=== PATIENT | female | born 1960 | race Caucasian/White ===

== ENCOUNTER → 2017-11-14 | Outpatient (CLI) | payer BC | END | disposition home or self-care (01) | LOC: MAMMO 14:49 | DX: Z12.31 Encounter for screening mammogram for malignant neoplasm of breast (principal) | CPT/HCPCS: 77067 ==

== ENCOUNTER 2017-12-08 12:53 | Inpatient (IN) | payer BC ==
[2017-12-08] MEDS ORDERED: traMADol 50 MG TABLET PO ×2 (13:45)
[2017-12-08 13:59] LABS: POC GLUCOSE 113 mg/dL (70-99)
[2017-12-08] MEDS: IOHEXOL 300 MG/ML 100ML VIAL. IV ×2 (14:45)
[2017-12-08] MEDS: IOHEXOL 240 MG/ML 50ML VIAL. PO ×2 (14:45)
[2017-12-08] MEDS ORDERED: CONTRAST GIVEN MC ×2 (14:45)
[2017-12-08 15:33] LABS: ADD MAN DIFF? NO
[2017-12-08 15:38] LABS: BASO # 0.1 x10^3/uL (0.0-0.2); BASO % 1 % (0-3); EOS # 0.1 x10^3/uL (0.0-0.7); EOS % 1 % (0-3); HEMATOCRIT 40.5 % (36.0-47.0); LYMPH # 3.1 x10^3/uL (1.0-4.8); LYMPH % 42 % (24-48); MEAN CORPUSCULAR HEMOGLOBIN 26 pg (25-35); MEAN CORPUSCULAR HGB CONC 32 g/dL (31-37); MEAN CORPUSCULAR VOLUME 79 fL (79-100); MONO # 0.7 x10^3/uL (0.0-1.1); MONO % 9 % (0-9); NEUT # 3.5 x10^3uL (1.8-7.7); NEUT % 47 % (31-73); PLATELET COUNT 298 x10^3/uL (140-400); RED BLOOD COUNT 5.11 x10^6/uL (3.50-5.40); RED CELL DISTRIBUTION WIDTH 14.9 % (11.5-14.5); WHITE BLOOD COUNT 7.4 x10^3/uL (4.0-11.0)
[2017-12-08 15:49] LABS: ALBUMIN 3.5 g/dL (3.4-5.0); ALBUMIN/GLOBULIN RATIO 0.8 (1.0-1.7); ALK PHOS 91 U/L (46-116); ALT (SGPT) 25 U/L (14-59); ANION GAP 9 (6-14); AST (SGOT) 23 U/L (15-37); BLOOD UREA NITROGEN 19 mg/dL (7-20); BUN/CREATININE RATIO 21 (6-20); CALCIUM 8.3 mg/dL (8.5-10.1); CARBON DIOXIDE 28 mmol/L (21-32); CHLORIDE 100 mmol/L (98-107); CREATININE 0.9 mg/dL (0.6-1.0); GFR 64.1; GLUCOSE 102 mg/dL (70-99); POTASSIUM 4.3 mmol/L (3.5-5.1); SODIUM 137 mmol/L (136-145); TOTAL PROTEIN 7.7 g/dL (6.4-8.2)
[2017-12-08] MEDS: IV DEXTROSE 5% - 0.9 % NACL 1,000 ML IV ×4 (15:57→23:45)
[2017-12-08 16:00] LABS: TOTAL BILIRUBIN 0.1 mg/dL (0.2-1.0)
[2017-12-08] MEDS ORDERED: DEXTROSE 50% 25 GM / 50ML DISP.SYRIN. IV ×2 (17:15)
[2017-12-08] MEDS: ALPRAZolam 0.5 MG TABLET PO ×2 (17:38)
[2017-12-08] MEDS: ENOXAPARIN 40 MG/0.4 ML SYRINGE. SQ ×2 (17:39)
[2017-12-08] MEDS: ATORVASTATIN CALCIUM 10 MG TABLET. PO ×2 (20:06)
[2017-12-08] MEDS: FAMOTIDINE 20 MG TABLET. PO ×2 (20:06)
[2017-12-08] MEDS: oxyCODONE/APAP 10/325 1 TAB TABLET PO ×2 (20:06)
[2017-12-08] MEDS: tiZANidine 4 MG TABLET. PO ×2 (20:07)
[2017-12-08] MEDS: LACTOBACILLUS RHAMNOSUS GG 1 CAPSULE. PO ×2 (20:07)
[2017-12-08] MEDS: TRIAMCINOLONE ACETONIDE 0.1% TOPICAL CREAM 15GM TUBE. TP ×2 (20:07)
[2017-12-08 20:41] LABS: POC GLUCOSE 175 mg/dL (70-99)
[2017-12-08] MEDS: SODIUM CHLORIDE 0.65% NASAL SPRAY 45ML BOTTLE. NS ×2 (22:12)
[2017-12-08] MEDS: guaiFENesin DM 600/30MG 1 TAB TAB.ER.12H PO ×2 (22:12)
[2017-12-08] MEDS: ZOLPIDEM 5 MG TABLET. PO ×2 (23:24)
[2017-12-08 23:26] LABS: INFLUENZA A PATIENT NEGATIVE (NEGATIVE)
[2017-12-08 23:28] LABS: INFLUENZA B PATIENT POSITIVE (NEGATIVE)
[2017-12-08 23:35] LABS: OBC FLU VALID
[2017-12-09] MEDS: oxyCODONE/APAP 10/325 1 TAB TABLET PO ×6 (05:52→18:22)
[2017-12-09] MEDS: IV DEXTROSE 5% - 0.9 % NACL 1,000 ML IV ×4 (05:58→21:15)
[2017-12-09 06:04] LABS: ANION GAP 10 (6-14); BLOOD UREA NITROGEN 16 mg/dL (7-20); CALCIUM 8.3 mg/dL (8.5-10.1); CARBON DIOXIDE 22 mmol/L (21-32); CHLORIDE 105 mmol/L (98-107); CREATININE 0.7 mg/dL (0.6-1.0); GFR 85.6; GLUCOSE 108 mg/dL (70-99); POTASSIUM 4.9 mmol/L (3.5-5.1); SODIUM 137 mmol/L (136-145)
[2017-12-09] MEDS: INSULIN ASPART 300 UNITS/3 ML INSULN.PEN SQ ×6 (08:00→17:00)
[2017-12-09] MEDS: ASPIRIN 325 MG TABLET PO ×2 (08:00)
[2017-12-09] MEDS: tiZANidine 4 MG TABLET. PO ×4 (09:00→21:14)
[2017-12-09] MEDS: TORSEMIDE 20 MG TABLET. PO ×2 (09:00)
[2017-12-09] MEDS: TRIAMCINOLONE ACETONIDE 0.1% TOPICAL CREAM 15GM TUBE. TP ×4 (09:00→21:14)
[2017-12-09] MEDS ORDERED: NON FORMULARY ITEM PO ×2 (09:00)
[2017-12-09 09:03] LABS: POC GLUCOSE 112 mg/dL (70-99)
[2017-12-09 09:33] LABS: ADD MAN DIFF? NO
[2017-12-09 09:37] LABS: BASO # 0.1 x10^3/uL (0.0-0.2); BASO % 1 % (0-3); EOS # 0.1 x10^3/uL (0.0-0.7); EOS % 1 % (0-3); HEMATOCRIT 38.3 % (36.0-47.0); HEMOGLOBIN 12.1 g/dL (12.0-15.5); LYMPH % 58 % (24-48); MEAN CORPUSCULAR HEMOGLOBIN 26 pg (25-35); MEAN CORPUSCULAR HGB CONC 32 g/dL (31-37); MEAN CORPUSCULAR VOLUME 81 fL (79-100); MONO # 0.5 x10^3/uL (0.0-1.1); MONO % 7 % (0-9); NEUT # 2.3 x10^3uL (1.8-7.7); NEUT % 33 % (31-73); PLATELET COUNT 268 x10^3/uL (140-400); RED BLOOD COUNT 4.73 x10^6/uL (3.50-5.40); RED CELL DISTRIBUTION WIDTH 14.9 % (11.5-14.5)
[2017-12-09] MEDS: CELECOXIB 200 MG CAPSULE. PO ×2 (10:08)
[2017-12-09] MEDS: POTASSIUM CHLORIDE 10 MEQ TABLET.ER. PO ×2 (10:09)
[2017-12-09] MEDS: LINAGLIPTIN 5 MG TABLET PO ×2 (10:09)
[2017-12-09] MEDS: OMEGA-3 FATTY ACIDS/FISH OIL 1,000 MG CAPSULE. PO ×2 (10:09)
[2017-12-09] MEDS: LACTOBACILLUS RHAMNOSUS GG 1 CAPSULE. PO ×4 (10:09→21:14)
[2017-12-09] MEDS: guaiFENesin DM 600/30MG 1 TAB TAB.ER.12H PO ×4 (10:10→22:48)
[2017-12-09] MEDS: PANTOPRAZOLE 40 MG TABLET.DR. PO ×2 (10:11)
[2017-12-09] MEDS: OSELTAMIVIR 75 MG CAPSULE PO ×4 (10:11→21:14)
[2017-12-09] MEDS: amLODIPine BESYLATE 5 MG TABLET PO ×2 (11:00)
[2017-12-09 12:44] LABS: POC GLUCOSE 80 mg/dL (70-99)
[2017-12-09] MEDS: ONDANSETRON PF 4 MG/2 ML VIAL. IV ×2 (16:18)
[2017-12-09] MEDS ORDERED: ASPIRIN CHEWABLE 81 MG TABLET. PO ×2 (17:30)
[2017-12-09] MEDS: ENOXAPARIN 40 MG/0.4 ML SYRINGE. SQ ×2 (17:56)
[2017-12-09] MEDS: CYCLOBENZAPRINE 10 MG TABLET. PO ×4 (18:15→21:00)
[2017-12-09 18:20] LABS: POC GLUCOSE 112 mg/dL (70-99)
[2017-12-09 18:31] LABS: BILIRUBIN,URINE NEGATIVE (NEG); CLARITY,URINE CLOUDY; COLOR,URINE YELLOW; GLUCOSE,URINE NEGATIVE (NEG); NITRITE,URINE NEGATIVE (NEG); PH,URINE 7.5; PROTEIN,URINE NEGATIVE (NEG-TRACE); UROBILINOGEN,URINE 0.2 mg/dL (0.2 mg/dL)
[2017-12-09 18:42] LABS: BACTERIA,URINE 0 /HPF (0-FEW); RBC,URINE 0 /HPF (0-2); SQUAMOUS EPITHELIAL CELL,UR FEW /LPF; WBC,URINE 0 /HPF (0-4)
[2017-12-09] MEDS: ATORVASTATIN CALCIUM 10 MG TABLET. PO ×2 (21:00)
[2017-12-09] MEDS: FAMOTIDINE 20 MG TABLET. PO ×2 (21:14)
[2017-12-09 21:24] LABS: POC GLUCOSE 100 mg/dL (70-99)
[2017-12-09] MEDS: ZOLPIDEM 5 MG TABLET. PO ×2 (22:48)
[2017-12-10] MEDS: oxyCODONE/APAP 10/325 1 TAB TABLET PO ×6 (01:55→13:39)
[2017-12-10] MEDS: LINAGLIPTIN 5 MG TABLET PO ×2 (08:00)
[2017-12-10] MEDS: INSULIN ASPART 300 UNITS/3 ML INSULN.PEN SQ ×2 (08:00)
[2017-12-10] MEDS: POTASSIUM CHLORIDE 10 MEQ TABLET.ER. PO ×2 (08:00)
[2017-12-10] MEDS ORDERED: POTASSIUM CHLORIDE 10 MEQ TABLET.ER. PO ×2 (09:00)
[2017-12-10] MEDS: TRIAMTERENE/HCTZ 37.5/25MG TABLET. PO ×2 (09:00)
[2017-12-10] MEDS: OMEGA-3 FATTY ACIDS/FISH OIL 1,000 MG CAPSULE. PO ×2 (09:00)
[2017-12-10] MEDS: TORSEMIDE 20 MG TABLET. PO ×2 (09:00)
[2017-12-10] MEDS ORDERED: NON FORMULARY ITEM (Sitagliptin Phos/Metformin Hcl (Janumet 50-1,000 Mg Tablet) 1 EACH) PO ×2 (09:00)
[2017-12-10] MEDS: TRIAMCINOLONE ACETONIDE 0.1% TOPICAL CREAM 15GM TUBE. TP ×2 (09:00)
[2017-12-10] MEDS: CYCLOBENZAPRINE 10 MG TABLET. PO ×2 (09:00)
[2017-12-10] MEDS ORDERED: amLODIPine BESYLATE 5 MG TABLET PO ×2 (09:00)
[2017-12-10] MEDS ORDERED: PANTOPRAZOLE 40 MG TABLET.DR. PO ×2 (09:00)
[2017-12-10] MEDS: tiZANidine 4 MG TABLET. PO ×2 (09:00)
[2017-12-10 09:17] LABS: POC GLUCOSE 97 mg/dL (70-99)
[2017-12-10] MEDS: CELECOXIB 200 MG CAPSULE. PO ×2 (09:32)
[2017-12-10] MEDS: guaiFENesin DM 600/30MG 1 TAB TAB.ER.12H PO ×2 (09:33)
[2017-12-10] MEDS: PANTOPRAZOLE 40 MG TABLET.DR. PO ×2 (09:33)
[2017-12-10] MEDS: ASPIRIN 325 MG TABLET PO ×2 (09:34)
[2017-12-10] MEDS: OSELTAMIVIR 75 MG CAPSULE PO ×2 (09:35)
[2017-12-10] MEDS: MAGNESIUM OXIDE 400 MG TABLET PO ×2 (09:35)
[2017-12-10] MEDS: LACTOBACILLUS RHAMNOSUS GG 1 CAPSULE. PO ×2 (09:35)
[2017-12-10] MEDS: amLODIPine BESYLATE 10 MG TABLET PO ×2 (09:46)
[2017-12-10] MEDS: IV DEXTROSE 5% - 0.9 % NACL 1,000 ML IV ×2 (09:57)
[2017-12-10 12:01] LABS: POC GLUCOSE 155 mg/dL (70-99)
== END 2017-12-10 13:45 | disposition home or self-care (01) | DRG 392 ==
LOC: 4 NORTH 12:53
PROVIDERS: Internal Medicine
DX: K57.92 Diverticulitis of intestine, part unspecified, without perforation or abscess without bleeding (principal); E11.9 Type 2 diabetes mellitus without complications; J11.1 Influenza due to unidentified influenza virus with other respiratory manifestations; E78.5 Hyperlipidemia, unspecified; I10 Essential (primary) hypertension; K21.9 Gastro-esophageal reflux disease without esophagitis; K57.30 Diverticulosis of large intestine without perforation or abscess without bleeding; K58.9 Irritable bowel syndrome, unspecified; Z79.891 Long term (current) use of opiate analgesic; Z82.49 Family history of ischemic heart disease and other diseases of the circulatory system; Z83.3 Family history of diabetes mellitus; Z87.891 Personal history of nicotine dependence; G89.29 Other chronic pain; M54.9 Dorsalgia, unspecified
CPT/HCPCS: 36415; 71046; 74177; 80048; 80053; 81001; 82962; 85025; 87040; 87804; 87804-59; 93005; J1650; J1956; J2405; J7042; Q9966

== ENCOUNTER → 2018-12-09 | Outpatient (CLI) | payer OTHER ==
[2017-12-10 11:00] VITALS: BP 138/81
[~2018-12-09] MED LIST: AMLO10TA8 PO; AMLO5TAB10 PO; ASPI-630 PO; CYCL5TAB PO; FENT1PAT15 TP; MAGN400C PO; METF10007 PO; OSEL75CA PO; OXYC10TA46 PO; OXYC1TAB22 PO; PANT40TA5 PO; POTA10TA12 PO; SITA1TAB11 PO; TRIA1TAB PO; ZOLP10TA PO
--- NOTE | 2018-12-09 15:09 | RAD ---
DATE: 12/09/2018 EXAM: MAMMO AQUILES SCREENING BILATERAL HISTORY: Routine screening COMPARISON: 11/14/2017 This study was interpreted with the benefit of Computerized Aided Detection (CAD). Breast Density: FATTY The breast parenchyma is primarily fatty replaced. Breast parenchyma level density A. FINDINGS: 2-D and 3-D tomosynthesis imaging was performed in CC and MLO projections. No new or enlarging breast densities are seen. Minimal benign type calcifications present. No suspicious microcalcifications have developed. IMPRESSION: Stable mammograms without evidence of malignancy. BI-RADS CATEGORY: 2 BENIGN FINDING(S) RECOMMENDED FOLLOW-UP: 12M 12 MONTH FOLLOW-UP PQRS compliance statement: Patient information was entered into a reminder system with a target due date for the next mammogram. Mammography is a sensitive method for finding small breast cancers, but it does not detect them all and is not a substitute for careful clinical examination. A negative mammogram does not negate a clinically suspicious finding and should not result in delay in biopsying a clinically suspicious abnormality. "Our facility is accredited by the [employer] Mammography Program."
== END | disposition home or self-care (01) ==
LOC: MAMMO 13:50
PROVIDERS: ATTEND Internal Medicine
DX: Z12.31 Encounter for screening mammogram for malignant neoplasm of breast (principal)
CPT/HCPCS: 77063; 77067

== ENCOUNTER 2019-12-19 09:30 | Emergency (ER) | payer BC, OTHER ==
[~2019-12-19] VITALS: Ht 165.1 cm; Wt 118.0 kg
[2019-12-19 09:30] VITALS: BP 145/78
[~2019-12-19 09:30] MED LIST changes: -PANT40TA5 PO; +PANT40TA77 PO
[2019-12-19] MEDS ORDERED: HYDROcodone/APAP 5/325MG 1 TAB TABLET PO ONE (10:15)
[2019-12-19] MEDS ORDERED: ONDANSETRON ODT 4 MG TAB.RAPDIS. PO ONE (10:15)
[2019-12-19] MEDS ORDERED: KETOROLAC 30 MG/ML VIAL. IM ONE (10:15)
--- NOTE | 2019-12-19 10:28 | RAD ---
CHEST PA LATERAL Clinical indications: Fever. Flulike symptoms. Headache. COMPARISON: December 08, 2017. Findings: No acute lung infiltrate or pleural effusion or pulmonary edema or lung mass or pneumothorax is seen. Small lateral hernia is seen. The heart size, pulmonary vasculature, mediastinum and both angel luis are otherwise unremarkable. The osseous structures appear intact. Impression: No acute radiographic abnormality is seen. Electronically signed by: Garret Yip MD (12/19/2019 10:26 AM) [facility]
[2019-12-19 10:33] LABS: INFLUENZA A PATIENT NEGATIVE (NEGATIVE); INFLUENZA B PATIENT NEGATIVE (NEGATIVE)
[2019-12-19] MEDS ORDERED: ONDA4TAB12 PO (11:18)
--- NOTE | 2019-12-19 11:26 | PHYS DOC ---
Past Medical History Past Medical History: Arthritis, Diabetes-Type II, Fibromyalgia, High Cho lesterol Additional Past Medical Histor: chronic back pain Past Surgical History: Other Additional Past Surgical Histo: hiatal hernia repair Smoking Status: Former Smoker Alcohol Use: None Drug Use: None Adult General Chief Complaint Chief Complaint: FLU SYMPTOM HPI HPI Patient is a 59 year old female presents with chief complaint of flulike symptoms. Cough runny nose fever body aches she slept and that with grandson who had similar symptoms a couple of days ago symptoms came on suddenly last night. Patient is a history of diabetes she been throwing up as well very nauseous unable take her pain medication so her body pain from fibromyalgia is getting worse. Review of Systems Review of Systems Constitutiona Cardiovascular: No additional information not addressed in HPI [] GI: Denies abdominal pain, nausea, vomiting, bloody stools or diarrhea [] : Denies dysuria or hematuria [] Musculoskeletal: D Integument: Denies rash or skin lesions [] Neurologic: D Endocrine: Denies polyuria or polydipsia [] All other systems were reviewed and found to be within normal limits, except as documented in this note. Current Medications Current Medications Current Medications Medications (Trade) Dose Ordered Sig/Kayleen Start Time Stop Time Status Last Admin Dose Admin Acetaminophen/ Hydrocodone Bitart (Lortab 5/325) 2 tab 1X ONCE 12/19/19 10:15 12/19/19 10:16 DC 12/19/19 10:22 2 TAB Ketorolac Tromethamine (Toradol 30mg Vial) 30 mg 1X ONCE 12/19/19 10:15 12/19/19 10:16 DC 12/19/19 10:23 30 MG Ondansetron HCl (Zofran Odt) 4 mg 1X ONCE 12/19/19 10:15 12/19/19 10:16 DC 12/19/19 10:15 4 MG Allergies Allergies Allergies Coded Allergies Type Severity Reaction Last Updated Verified adhesive Adverse Reaction Intermediate Rash 07/25/14 No Physical Exam Physical Exam Constitutional: Well developed, well nourished, no acute distress, non-toxic appearance. [] HENT: Normocephalic, atraumatic, bilateral external ears normal, oropharynx moist, no oral exudates, nose normal. [] Eyes: PERRLA, EOMI, conjunctiva normal, no discharge. [] Neck: Normal range of motion, no tenderness, supple, no stridor. [] Cardiovascular tachycardia no murmur or obvious Lungs & Thorax: Bilateral breath sounds clear to auscultation [] Abdomen: Bowel sounds normal, soft, no tenderness, no masses, no pulsatile masses. [] Skin: Warm, dry, no erythema, no rash. [] Back: No tenderness, no CVA tenderness. [] Extremities: No tenderness, no cyanosis, no clubbing, ROM intact, no edema. [] Neurologic: Alert and oriented X 3, normal motor function, normal sensory function, no focal deficits noted. [] Psychologic: Affect normal, judgement normal, mood normal. [] Current Patient Data Vital Signs Vital Signs Date Time Temp Pulse Resp B/P (MAP) Pulse Ox O2 Delivery O2 Flow Rate FiO2 12/19/19 11:11 99.0 115 20 Room Air 99.0 12/19/19 10:22 97 12/19/19 09:30 145/78 (100) Lab Values Laboratory Tests Test 12/19/19 09:52 12/19/19 10:00 Influenza Type A Antigen Negative (NEGATIVE) Influenza Type B Antigen Negative (NEGATIVE) Glucose (Fingerstick) 151 mg/dL (70-99) H EKG EKG [] Radiology/Procedures Radiology/Procedures [] Impressions: COMPARISON: December 08, 2017. Findings: No acute lung infiltrate or pleural effusion or pulmonary edema or lung mass or pneumothorax is seen. Small lateral hernia is seen. The heart size, pulmonary vasculature, mediastinum and both angel luis are otherwise unremarkable. The osseous structures appear intact. Impression: No acute radiographic abnormality is seen. Electronically signed by: Tuan Yip MD (12/19/2019 10:26 AM) [facility] DICTATED and SIGNED BY: TUAN YIP MD DATE: 12/19/19 1026 Course & Med Decision Making Course & Med Decision Making Pertinent Labs and Imaging studies reviewed. (See chart for details) []59-year-old female history of diabetes blood sugar was 151 in the emergency room flulike symptoms. Flu swab negative. Nursing staff did tell me that she was a hard swab not really compliant nevertheless heart rate is improved after treatment in the emergency room down to 113 on my evaluation chest x-ray negative she feels much better I think she can go home either viral syndrome or influenza but either way she should get better perception for Zofran was provided and return precautions were discussed in detail patient voiced understanding. Dragon Disclaimer Dragon Disclaimer This electronic medical record was generated, in whole or in part, using a voice recognition dictation system. Departure Departure Impression: Primary Impression: Viral syndrome Disposition: 01 HOME, SELF-CARE Condition: STABLE Patient Instructions: Viral Syndrome Scripts Ondansetron (ONDANSETRON ODT) 4 Mg Tab.rapdis 1 TAB PO PRN Q6-8HRS PRN for NAUSEA/VOMITING, #16 TAB Prov: MYKE BARNES MD 12/19/19 MYKE BARNES MD Dec 19, 2019 11:26
== END 2019-12-19 11:23 | disposition home or self-care (01) ==
LOC: ER 09:30
DX: B34.9 Viral infection, unspecified (principal); E11.9 Type 2 diabetes mellitus without complications; E78.00 Pure hypercholesterolemia, unspecified; G89.29 Other chronic pain; Z87.891 Personal history of nicotine dependence; Z88.8 Allergy status to other drugs, medicaments and biological substances
CPT/HCPCS: 71046; 82962; 87804; 96372; 99284; J1885; Q0162

== ENCOUNTER 2021-05-03 19:19 | Emergency (ER) | payer BC ==
[~2021-05-03] VITALS: Ht 165.1 cm; Wt 113.6 kg
[~2021-05-03 19:19] MED LIST changes: +AMLO-186 PO; +AMLO-187 PO; -AMLO10TA8 PO; -AMLO5TAB10 PO; +ONDA4TAB12 PO
[2021-05-03 19:20] VITALS: BP 178/78
[2021-05-03] MEDS ORDERED: NAPROXEN 500 MG TABLET PO STA (19:28)
[2021-05-03] MEDS ORDERED: HYDROcodone/APAP 5/325MG 1 TAB TABLET PO ONE (19:30)
--- NOTE | 2021-05-03 20:19 | RAD ---
EXAM: 3 views of the left hand DATE: 05/03/2021 7:46 PM INDICATION: Reason: fall / Spl. Instructions: / History: COMPARISON: No Prior FINDINGS: There is mild foreshortening of the fourth metacarpal. Thumb CMC DJD. No significant soft tissue swel ling. Ulnar minus variance. IMPRESSION: 1. There is mild foreshortening of the fourth metacarpal. Equivocal nondisplaced fracture at the bas e, can be correlated with patient's symptoms/point tenderness. 2. Thumb CMC DJD Electronically signed by: Brannon Anguiano MD (05/03/2021 8:17 PM) [facility]
--- NOTE | 2021-05-03 20:20 | RAD ---
EXAM: AP, lateral and oblique views of the right knee DATE: 05/03/2021 7:46 PM INDICATION: Reason: fall / Spl. Instructions: / History: COMPARISON: No Prior FINDINGS: No acute fracture or dislocation. No joint effusion. Severe medial and lateral compartment joint spa ce narrowing with tricompartmental osteophytes. IMPRESSION: No acute fracture or dislocation. Severe right knee joint osteoarthritis Electronically signed by: Brannon Anguiano MD (05/03/2021 8:17 PM) [facility]
--- NOTE | 2021-05-03 20:45 | PHYS DOC ---
Past Medical History Past Medical History: Arthritis, Diabetes-Type II, Fibromyalgia, High Cho lesterol Additional Past Medical Histor: chronic back pain Past Surgical History: Other Additional Past Surgical Histo: hiatal hernia repair Smoking Status: Former Smoker Alcohol Use: None Drug Use: None General Adult EDM: Chief Complaint: MECHANICAL FALL HPI: HPI: Patient is a 61 year old female with history of diabetes type 2, hypertension, fibromyalgia, high cholesterol, who presents to the ED today complaining of moderate pain to the right knee and left hand that began a couple minutes prior to coming to the ED after she fell. Patient states she was walking into the gas station, she tripped on a piece of rug and fell. Patient denies any loss of consciousness. Denies hitting her head on the ground. Patient states the pain is worse on range of motion. Denies anything specifically relieving the pain. Review of Systems: Review of Systems: Constitutional: Denies fever or chills. [] Musculoskeletal: Reports right knee pain and left hand pain. Denies back pain Integument: Denies rash. [] Neurologic: Denies headache, focal weakness or sensory changes. [] Psychiatric: Denies depression or anxiety. [] Heart Score: C/O Chest Pain: N/A Risk Factors: Risk Factors: DM, Current or recent (<one month) smoker, HTN, HLP, family history of CAD, obesity. Risk Scores: Score 0 - 3: 2.5% MACE over next 6 weeks - Discharge Home Score 4 - 6: 20.3% MACE over next 6 weeks - Admit for Clinical Observation Score 7 - 10: 72.7% MACE over next 6 weeks - Early Invasive Strategies Current Medications: Current Medications Medications (Trade) Dose Ordered Sig/Kayleen Start Time Stop Time Status Last Admin Dose Admin Acetaminophen/ Hydrocodone Bitart (Lortab 5/325) 2 tab 1X ONCE 05/03/21 19:30 05/03/21 19:31 DC Naproxen (Naprosyn) 500 mg 1X STAT 05/03/21 19:28 05/03/21 19:31 DC Allergies: Allergies: Allergies Coded Allergies Type Severity Reaction Last Updated Verified adhesive Adverse Reaction Intermediate Rash 07/25/14 No Physical Exam: PE: Constitutional: Well developed, well nourished, no acute distress, non-toxic appearance. [] Skin: Warm, dry, no erythema, no rash. [] Back: No tenderness, no CVA tenderness. [] Extremities: Left hand with no obvious deformity, scattered bruising noted on the palmar aspect of the left hand. Tenderness diffusely on the palmar aspect of the left hand. Full range of motion to the left hand and fingers. Adequate radial, median, ulnar sensation to the left hand. +2 left radial pulse. Cap refill less than 2 seconds to left fingers. Right knee with no obvious deformity. Diffuse tenderness throughout the anterior aspect of the knee. Immediate range of motion to the right knee the patient is overweight. +2 right pedal pulse. Cap refill less than 2 seconds to right fingers. Neurologic: Alert and oriented X 3, normal motor function, normal sensory function, no focal deficits noted. [] Psychologic: Affect normal, judgement normal, mood normal. [] Current Patient Data: Vital Signs: Vital Signs Date Time Temp Pulse Resp B/P (MAP) Pulse Ox O2 Delivery O2 Flow Rate FiO2 05/03/21 19:20 98.5 121 20 178/78 (100) 97 Room Air 98.5 EKG: EKG: [] Radiology/Procedures: Radiology/Procedures: []PROCEDURE: KNEE RIGHT 3V EXAM: AP, lateral and oblique views of the right knee DATE: 05/03/2021 7:46 PM INDICATION: Reason: fall / Spl. Instructions: / History: COMPARISON: No Prior FINDINGS: No acute fracture or dislocation. No joint effusion. Severe medial and lateral compartment joint space narrowing with tricompartmental osteophytes. IMPRESSION: No acute fracture or dislocation. Severe right knee joint osteoarthritis Electronically signed by: Brannon Anguiano MD (05/03/2021 8:17 PM) [facility] DICTATED and SIGNED BY: BRANNON ANGUIANO MD DATE: 05/03/21 [id number] 0 PROCEDURE: HAND LEFT 3V EXAM: 3 views of the left hand DATE: 05/03/2021 7:46 PM INDICATION: Reason: fall / Spl. Instructions: / History: COMPARISON: No Prior FINDINGS: There is mild foreshortening of the fourth metacarpal. Thumb CMC DJD. No significant soft tissue swelling. Ulnar minus variance. IMPRESSION: 1. There is mild foreshortening of the fourth metacarpal. Equivocal nondisplaced fracture at the base, can be correlated with patient's symptoms/point tenderness. 2. Thumb CMC DJD Electronically signed by: Brannon Anguiano MD (05/03/2021 8:17 PM) [facility] DICTATED and SIGNED BY: BRANNON ANGUIANO MD DATE: 05/03/[id number] 0 Course & Med Decision Making: Course & Med Decision Making Pertinent Labs and Imaging studies reviewed. (See chart for details) This is a 61-year-old female patient presented to the ED today with right knee pain and left hand pain after falling at a gas station. Right knee x-rays interpreted by radiologist were negative for any acute findings, noted for severe DJD. Left hand x-rays interpreted by radiologist were noted for mild foreshortening of the fourth metacarpal. Equivocal nondisplaced fracture at the base, can be correlated with patient's symptoms/point tenderness. Patient has tenderness diffusely to the left hand. We will go ahead and splint her left hand. Ulnar gutter splint applied to the left hand by the supply chain technician. Neurovascular exam done by me is intact. Favian bandage applied to the right knee by the supply chain technician, neurovascular exam done by me is intact. Ice elevation encouraged. Follow-up with orthopedic doctor in the course of this week or next week. Dragon Disclaimer: Dragon Disclaimer: This electronic medical record was generated, in whole or in part, using a voice recognition dictation system. Departure Departure Impression: Primary Impression: Fall Qualified Codes: W19.XXXA - Unspecified fall, initial encounter Additional Impressions: Contusion of right knee Qualified Codes: S80.01XA - Contusion of right knee, initial encounter Right knee DJD Qualified Codes: M17.11 - Unilateral primary osteoarthritis, right knee Fracture of fourth metacarpal bone of left hand Qualified Codes: S62.345A - Nondisplaced fracture of base of fourth metacarpal bone, left hand, initial encounter for closed fracture Disposition: 01 HOME / SELF CARE / HOMELESS Condition: STABLE Referrals: NAIDA BARGER MD (PCP) BRYAN BEAR DO Please call the office tomorrow and set up a follow-up appointment Patient Instructions: Contusion, [id number], Hand Fracture, Metacarpals Additional Instructions: You were evaluated in the emergency room after falling, your right knee x-rays were negative for any acute findings, you were noted to have severe arthritis to the right knee. Please follow-up with the provided orthopedic doctor or your own orthopedic doctor this week or next week. You were also noted to have a pos sible fracture of your left fourth metacarpal bone. We will put you in a splint. Please follow-up with orthopedic doctor next week. Try and ice and elevate the affected areas. VALERIO DANIEL APRN May 03, 2021 20:45
== END 2021-05-03 21:40 | disposition home or self-care (01) ==
LOC: ER 19:19
DX: S62.345A Nondisplaced fracture of base of fourth metacarpal bone, left hand, initial encounter for closed fracture (principal); S80.01XA Contusion of right knee, initial encounter; M17.11 Unilateral primary osteoarthritis, right knee; E11.9 Type 2 diabetes mellitus without complications; E78.00 Pure hypercholesterolemia, unspecified; G89.29 Other chronic pain; Z87.891 Personal history of nicotine dependence; Z98.890 Other specified postprocedural states; W18.39XA Other fall on same level, initial encounter; Y93.89 Activity, other specified; Y92.89 Other specified places as the place of occurrence of the external cause; Y99.8 Other external cause status
CPT/HCPCS: 29125; 73130; 73562; 99284; A6450